=== PATIENT | male | born 1985 | race Caucasian/White ===

== ENCOUNTER 2017-06-24 07:45 | Day surgery (SDC) | payer OTHER, SELFPAY ==
[2017-06-17 16:57] VITALS: BMI 28.7
--- NOTE | 2017-06-24 07:30 | PM.PREOP ---
Pre-operative Note Interval Note Pre-op Check: History & Physical Reviewed
[2017-06-24 08:00] VITALS: BP 131/81; PULSE 67; RESP 16; TEMP 36.6; O2SAT 100; BMI 29.4
[2017-06-24] MEDS: LACTATED RINGERS 1,000 ML 42 ML IV (08:15)
[2017-06-24 08:33] VITALS: BMI 29.4
--- NOTE | 2017-06-24 09:00 | SUR.PREOP ---
Block start time [0845] . Monitoring initiated and maintained throughout procedure. Oxygen and medications given per DR RICHEY'S instructions. Patient remained stable throughout procedure, no adverse reactions noted. Block end time [0858].
[2017-06-24] MEDS: CEFTRIAXONE 2 GM/50 ML FROZ.PIGGY IV (09:06)
--- NOTE | 2017-06-24 10:31 | SUR.OPER ---
Lateral on padded OR bed, with gel topped barnes bag positioner, head on pillow, gel axillary roll in place, bottom leg bent with gel pad under knee to foot, upper leg straight and supported with pillows. Upper arm supported by pillows and secured over bottom arm to padded arm board. Safety belt at hip, tape over blanket lower legs.
--- NOTE | 2017-06-24 10:37 | PM.PROC.1 ---
Procedures Date/Time Date of procedure: 06/24/17 Time of procedure: 08:45 General Procedure description: Ultrasound guided interscalene brachial plexus nerve block for post op pain control after right shoulder surgery by Dr. Walker. Risk and benefits of procedure discussed with patient. ASA monitoring applied to patient. 02 given via nasal cannula. 2 mg Versed and 100 mcg fentanyl given for procedural sedation. Skin site was prepped with chlorhexidine and allowed to fully dry. Sterile gloves, mask, hat and probe cover were used to maintain sterility. 2% lidocaine and 30ga needle was used to make a small skin wheal at needle insertion site. Under ultrasound guidance, a 21ga 50mm Pajunk needle was directed into the interscalene groove (middle/anterior scalenes) near the brachial plexus. Patient reported no parasthesias. After negative aspiration, 20 mL 0.5% ropivicaine and 10mg dexamethasone were injected around brachial plexus. Patient tolerated procedure well. Patient has 3/5 strength shoulder abduction within 5 minutes
[2017-06-24] MEDS: SODIUM CHLORIDE IRRIG SOLUTION 6,000 ML, EPINEPHrine 2 MG IRR (10:43)
[2017-06-24 11:10] VITALS: BP 146/77; PULSE 67; RESP 12; TEMP 36.6; O2SAT 94
[2017-06-24 11:15] VITALS: BP 124/68; PULSE 67; RESP 12; O2SAT 94
[2017-06-24 11:20] VITALS: BP 125/74; PULSE 82; RESP 14; O2SAT 95
[2017-06-24 11:27] VITALS: BP 137/77; PULSE 75; RESP 16; TEMP 36.5; O2SAT 96
--- NOTE | 2017-06-24 11:43 | P.OP_ITS ---
Operative Date/Time/Diagnoses - Date of procedure: 06/24/17 Time of procedure: 09:28 Pre-op diagnosis: Right shoulder labral tear. Possible subscapularis tear. Possible Biceps Tendon Tear Post-op diagnosis: other (Right shoulder posterior labral tear. Subscapularis intact. Biceps anchor intact) Procedure & Clinicians Procedure: Right shoulder arthroscopic posterior labral repair. 78902 Same procedure as scheduled: Yes Indications: 31-year-old male with 6 years of right shoulder pain. Symptoms were consistent with posterior labral tear biceps tendinopathy and potentially a subscapularis tear. Physical exam was mostly indicative of a posterior labral tear. He failed a course of physical therapy. He continued to have activity limiting pain which is most prominent on the posterior shoulder was loaded. We discussed the risks and benefits of surgery to include pain, bleeding, infection , damage to nearby structures, lack of symptom relief, anesthetic risks. A written consent was obtained. Surgeon: Schuyler Walker Wicker Molded Candles: Kaila Stearns Anesthesia Type: General and Peripheral nerve block Operative Notes Findings: Biceps tendon anchor intact. there was a very small lipstick lesion. The biceps sling was intact. Type 1 slap tear was debrided Subscapularis tendon insertion was intact with excellent tension. Anterior labrum was intact Posterior labrum had a focal tear from 7:00 to 9:00. Glenoid and humeral head cartilage were intact. Rotator cuff was without tear A sublabral foramen with cyst was noted at 2 o'clock anteriorly. this was debrided and decompressed with a sucker shaver Closure Type: primary Specimen(s): none sent Implants & Drains: Knotless suture tack x2. Arthrex Estimated Blood Loss (mL): 25 Blood products transfused: none Procedure in detail: The patient was met in the preoperative hold area the day of the procedure. Operative extremity was signed. Consent was verified. He desired to proceed. Regional anesthesia was performed. He was brought to the operating room and surrendered to anesthesia. Once general anesthesia had been obtained he was placed in the lateral decubitus position and all bony prominences were well padded. Examination under anesthesia was performed knee was found to have full range of motion equal to the contralateral side without any pathologic laxity or instability. He was then prepped and draped in the standard sterile fashion. A surgical time-out was held where we confirmed the patient procedure identity allergies antibiotics images all were in agreement we proceeded. A diagnostic arthroscopy of the shoulder was performed utilizing a posterior incision and an anterior superior portal. The findings of the diagnostic arthroscopy can be found above. I then established the mid glenoid portal utilizing a spinal needle. The camera was then moved into the superior portal for better visualization and assessment of the posterior labrum. The posterior labrum was found to have a crack tear and the repair was planned. The subscapularis tendon insertion was evaluated at length and the tension on the upper rolled border was excellent. The biceps tendon as well was stable within the groove and had a good anchor. There was a type 1 slap tear and this was debrided back to a stable base. Additionally, I placed a sucker shaver at the location of the anterior labral cyst. And and I debrided the cyst. I then placed the camera into the superior portal and began preparing the labrum. A 45 degree elevator was placed from the mid glenoid portal across to the posterior labrum and was used to liberate the labrum from its attachment. Satisfied with my release I then brought in the pineapple rasp and rasped the glenoid to a bed of bleeding bone. Sucker shaver was then brought into the interval to remove any unstable tissue. I then established a percutaneous portal utilizing the percutaneous kit. This was placed at the 7 o'clock position. Of the drill guide was placed just inside the tear on the inferior portal and a knotless suture tack was placed without issue. I then used a knotless technique to perform the labral tear and applied only a small capsulorrhaphy. A 2nd anchor was placed in similar fashion but was at the superior border tear. These 2 anchors were tightened and cut and found to reduce and stabilize the labrum very nicely. Final images were taken and all instruments removed from the joint. The incisions were closed with buried Monocryl and Steri-Strips were applied. A sterile dressing was then applied and the arm was placed into a sling. The patient was awakened and transferred to the recovery room. Complications: none Condition: stable Disposition: PACU Plan for aftercare: Weeks 0-2: Sling and pillow in neutral position. Pendulum exercises Weeks 2-6: Gentle passive range of motion. Forward flexion to 120?. No internal rotation when flexed. Abduction to 90?. External rotation is okay Weeks 6-12: Active range of motion in all planes. Gentle strengthening once full range of motion is achieved 3 months: Gradual strengthening Four months: Introduced dynamic activities 5-6 months: Full activity
[2017-06-24 11:50] VITALS: BP 128/76; PULSE 81; RESP 14; TEMP 36.5; O2SAT 98
== END 2017-06-24 12:00 | disposition home or self-care (01) ==
PROVIDERS: Visit Provider Orthopaedic Surgery
PROC: (CPT 29806; principal; 2017-06-24 08:45)
PROC: (CPT 29806; 2017-06-24 08:45)
DX: S43.491A Other sprain of right shoulder joint, initial encounter (principal); S43.431A Superior glenoid labrum lesion of right shoulder, initial encounter; X50.1XXA Overexertion from prolonged static or awkward postures, initial encounter; Y93.79 Activity, other specified sports and athletics
CPT/HCPCS: 29806; 64450; J0171; J0696; J1100; J1885; J2250; J2405; J2704; J3010